=== PATIENT | female | born 1990 | race Caucasian/White ===

== ENCOUNTER → 2021-09-19 | Day surgery (SDC) | payer OTHER ==
[~2021-09-19] VITALS: Ht 175.3 cm; Wt 74.8 kg
[~2021-09-19] MED LIST: CLARITIN10 MG PO; PERCOCET 5-3251 EACH PO; VITAMIN D350 MC3 PO; VITAMIN E180 M1 PO; [UNRECOGNIZED DRUG - OTHER] PO
[2021-09-19 08:09] LABS: HCG (URINE) SCREEN NEGATIVE (NEGATIVE)
[2021-09-19 08:37] LABS: HCT 40.1 % (37.0-47.0); HGB 13.2 g/dl (12.5-16.0); MCH 29.7 pg (25.0-31.0); MCHC 32.9 g/dL (32.0-36.0); MCV 90.3 fL (78.0-100.0); MPV 10.8 fL (6.0-9.5); RBC 4.44 M/uL (4.20-5.40); RDW 12.9 % (11.5-14.0)
== END | disposition home or self-care (01) ==
LOC: FAS 07:54
PROVIDERS: Obstetrics & Gynecology
DX: N93.9 Abnormal uterine and vaginal bleeding, unspecified (principal); Z79.3 Long term (current) use of hormonal contraceptives; N83.202 Unspecified ovarian cyst, left side; K58.9 Irritable bowel syndrome, unspecified; Z20.822 Contact with and (suspected) exposure to COVID-19
CPT/HCPCS: 36415; 84703; 86850; 86900; 86901; J1100; J1170; J1885; J2250; J2405; J2704; J3010; J7120